=== PATIENT | female | born 1975 | race Two or more races ===

== ENCOUNTER 2020-10-25 13:39 | Emergency (ER) | payer SELFPAY ==
[2020-10-25] MEDS ORDERED: Sodium Chloride 0.9% 1,000 ML IV ONE (14:32)
[2020-10-25] MEDS ORDERED: Sodium Chloride 0.9% 10 ML Syringe FLUSH PRN (14:32)
--- NOTE | 2020-10-25 14:49 | EDM.PDOC ---
ED HPI GENERAL MEDICAL PROBLEM - General Chief Complaint: Syncope Stated Complaint: SYNCOPE Time Seen by Provider: 10/25/20 14:13 Source of Information: Reports: Patient History Limitations: Reports: No Limitations, Other (ED vital signs reveal a temp of 97.0, pulse of 81, respiratory rate of 12, blood pressure 137/78, pulse ox 100% on room air.) - History of Present Illness INITIAL COMMENTS - FREE TEXT/NARRATIVE: 45-year-old female presents the emergency department with complaints of a syncopal episode. The patient is not Upper Sorbian speaking so her is at the bedside translating. He states that this morning he was outside working when she came to find him and was very tremulous and weak with ambulation. She reported to him that she had a syncopal episode just prior to trying to find him. He is unaware how long she was out for. He states that she does have a history of significant alcohol consumption. She drinks at least 6 beers per day. He states she does not drink any hard alcohol. She has drank for as long as he can remember. She had 6 beers yesterday with her last drink being at about 11 PM last evening. He states that she complained of feeling shaky and not really well yesterday already. He states that they have not been out in the heat however their house is extremely hot over the course the last few days it has been 90+ degrees outside. He states they do have fans running however. He states that her appetite has been fair however she does not drink much water. She has no significant past medical history and does not take any prescription medications. She denies nausea, vomiting, diarrhea or abdominal pain. He asks her and she does admit that yesterday she developed burning and irritation with urination. He states that she did have a fever this morning of about 101 degrees. He also did check her blood sugar at home and it was around 104 g/dL. She also complains of feeling like her tongue is swelling up in the back of her throat. However he states she has not consumed any new foods or drinks. She drank a bottle of coconut water today and that is all she has had for intake. Denies any cough or shortness of breath. Denies any chest pain. She is not a smoker and does not consume any recreational drugs. - Related Data Allergies Allergy/AdvReac Type Severity Reaction Status Date / Time No Known Allergies Allergy Verified 01/28/20 08:19 Home Meds: Home Meds . [No Known Home Meds] 10/25/20 [History] Past Medical History - Infectious Disease History Infectious Disease History: Reports: Chicken Pox, Measles, Mumps - Past Surgical History HEENT Surgical History: Reports: Tonsillectomy Female Surgical History: Reports: Section Other Female Surgeries/Procedures: x 3 Social & Family History - Tobacco Use Tobacco Use Status *Q: Never Tobacco User - Caffeine Use Caffeine Use: Reports: Coffee, Soda - Recreational Drug Use Recreational Drug Use: No ED ROS GENERAL - Review of Systems Review Of Systems: Comprehensive ROS is negative, except as noted in HPI. - Physical Exam Exam: See Below Exam Limited By: Language Barrier General Appearance: Alert, WD/WN, No Apparent Distress Ears: Normal External Exam, Hearing Grossly Normal Nose: Normal Inspection Throat/Mouth: Normal Inspection, Normal Lips, Normal Voice, No Airway Compromise Head Exam: Atraumatic Neck: Normal Inspection, Supple Respiratory/Chest: No Respiratory Distress, Lungs Clear, Normal Breath Sounds, No Accessory Muscle Use, Chest Non-Tender Cardiovascular: Normal Peripheral Pulses, Regular Rate, Rhythm, No Edema, No Murmur GI/Abdominal: Normal Bowel Sounds, Soft, Non-Tender, No Distention (Female) Exam: Deferred Rectal (Female) Exam: Deferred Neuro Exam (Abbreviated): Alert, Oriented, Normal Cognition Back Exam: Normal Inspection Extremities: Normal Inspection, Normal Range of Motion, No Pedal Edema, Normal Capillary Refill Psychiatric: Normal Affect, Normal Mood Skin Exam: Warm, Dry, Intact, Normal Color, No Rash #1 Interpretation EKG Date: 10/25/20 Time: 14:00 Rhythm: NSR Rate (Beats/Min): 74 Waddy: Normal P-Wave: Present QRS: Normal ST-T: Normal QT: Normal Comparison: NA - No Prior EKG EKG Interpretation Comments: Per Dr. Muro interpretation: sinus rhythm @ 74/min; normal EKG Course - Vital Signs Text/Narrative:: Per my assessment, the patient is tremulous. She is unsteady on her feet as I did watch her ambulate to the bathroom to give us a urine sample. She does not have any abdominal tenderness with palpation. She does not have any suprapubic tenderness. She does not have any chest pain with palpation or deep breathing. Her lungs are clear. Mucous membranes are slightly dry. I have ordered labs to include a CBC, CMP, magnesium, C-reactive protein, troponin, TSH, urinalysis with micro and culture if warranted, portable view of the chest and an EKG. I have also ordered for the patient to receive a liter of normal saline as she is likely dehydrated from her excessive alcohol intake. Last Recorded V/S: Last Vital Signs Temp 97.0 F 10/25/20 13:59 Pulse 81 10/25/20 13:59 Resp 12 10/25/20 13:59 BP 137/78 10/25/20 13:59 Pulse Ox 100 10/25/20 13:59 - Orders/Labs/Meds Orders: Active Orders 24 hr Category Date Time Status EKG Documentation Completion [RC] ASDIRECTED Care 10/25/20 13:55 Active Holter Monitor 48 Hours [RC] .PRN Care 10/25/20 15:44 Active Sodium Chloride 0.9% [Saline Flush] Med 10/25/20 14:32 Active 10 ml FLUSH ASDIRECTED PRN Saline Lock Insert [OM.PC] Stat Oth 10/25/20 14:32 Ordered EKG 12 Lead [EK] Stat Ther 10/25/20 13:54 Ordered Medication Orders Sodium Chloride (Sodium Chloride 0.9% 10 Ml Syringe) 10 ml FLUSH ASDIRECTED PRN PRN Reason: Keep Vein Open Last Admin: 10/25/20 14:50 Dose: 10 ml Documented by: ALVARO Labs: Laboratory Tests 10/25/20 10/25/20 10/25/20 Range/Units 14:20 14:20 14:45 WBC 6.63 (3.98-10.04) K/mm3 RBC 4.15 (3.98-5.22) M/mm3 Hgb 11.4 (11.2-15.7) gm/dl Hct 35.5 (34.1-44.9) % MCV 85.5 (79.4-94.8) fl MCH 27.5 (25.6-32.2) pg MCHC 32.1 L (32.2-35.5) g/dl RDW Std Deviation 45.3 (36.4-46.3) fL Plt Count 338 (182-369) K/mm3 MPV 9.3 L (9.4-12.3) fl Neut % (Auto) 76.5 H (34.0-71.1) % Lymph % (Auto) 15.4 L (19.3-51.7) % [place] % (Auto) 7.5 (4.7-12.5) % Eos % (Auto) 0.3 L (0.7-5.8) Baso % (Auto) 0.3 (0.1-1.2) % Neut # (Auto) 5.07 (1.56-6.13) K/mm3 Lymph # (Auto) 1.02 L (1.18-3.74) K/mm3 [place] # (Auto) 0.50 H (0.24-0.36) K/mm3 Eos # (Auto) 0.02 L (0.04-0.36) K/mm3 Baso # (Auto) 0.02 (0.01-0.08) K/mm3 Sodium (136-145) mEq/L Potassium (3.5-5.1) mEq/L Chloride (98-107) mEq/L Carbon Dioxide (21-32) mEq/L Anion Gap (5-15) BUN (7-18) mg/dL Creatinine (0.55-1.02) mg/dL Est Cr Clr Drug Dosing mL/min Estimated GFR (MDRD) (>60) mL/min BUN/Creatinine Ratio (14-18) Glucose (70-99) mg/dL Calcium (8.5-10.1) mg/dL Magnesium (1.8-2.4) mg/dL Total Bilirubin (0.2-1.0) mg/dL AST (15-37) U/L ALT (14-59) U/L Alkaline Phosphatase (46-116) U/L Troponin I (0.00-0.056) ng/mL C-Reactive Protein (<1.0) mg/dL Total Protein (6.4-8.2) g/dl Albumin (3.4-5.0) g/dl Globulin gm/dL Albumin/Globulin Ratio (1-2) TSH 3rd Generation (0.358-3.74) uIU/mL Urine Color Light yellow (Yellow) Urine Appearance Clear (Clear) Urine pH 6.5 (5.0-8.0) Ur Specific [place] 1.010 (1.005-1.030) Urine Protein Negative (Negative) Urine Glucose (UA) Negative (Negative) Urine Ketones Negative (Negative) Urine Occult Blood Trace-lysed H (Negative) Urine Nitrite Negative (Negative) Urine Bilirubin Negative (Negative) Urine Urobilinogen 0.2 (0.2-1.0) Ur Leukocyte Esterase Negative (Negative) Urine RBC 0-5 (0-5) /hpf Urine WBC Not seen (0-5) /hpf Ur Epithelial Cells Not seen (0-5) /hpf Urine Bacteria Rare (FEW) /hpf Urine Mucus Not seen (FEW) /hpf Urine Opiates Screen Negative (QRTZCZ=887) Ur Buprenorphine Scrn Negative (CUTOFF=10) Ur Oxycodone Screen Negative (DNK8JV=810) Urine Methadone Screen Negative (WIZMVX=659) Ur Propoxyphene Screen Negative (ZMDINL=684) Ur Barbiturates Screen Negative (NGWWOU=771) Ur Tricyclics Screen Negative (IOHMDQ=327) Ur Phencyclidine Scrn Negative (CUTOFF=25) Ur Amphetamine Screen Negative (KFIRAE=589) U Methamphetamines Scrn Negative (RRXHOQ=502) U Benzodiazepines Scrn Negative (TKVLFU=561) U Cocaine Metab Screen Negative (TYLDHF=039) U Marijuana (THC) Screen Negative (CUTOFF=50) Ethyl Alcohol (0.00) gm% 10/25/20 Range/Units 14:45 WBC (3.98-10.04) K/mm3 RBC (3.98-5.22) M/mm3 Hgb (11.2-15.7) gm/dl Hct (34.1-44.9) % MCV (79.4-94.8) fl MCH (25.6-32.2) pg MCHC (32.2-35.5) g/dl RDW Std Deviation (36.4-46.3) fL Plt Count (182-369) K/mm3 MPV (9.4-12.3) fl Neut % (Auto) (34.0-71.1) % Lymph % (Auto) (19.3-51.7) % [place] % (Auto) (4.7-12.5) % Eos % (Auto) (0.7-5.8) Baso % (Auto) (0.1-1.2) % Neut # (Auto) (1.56-6.13) K/mm3 Lymph # (Auto) (1.18-3.74) K/mm3 [place] # (Auto) (0.24-0.36) K/mm3 Eos # (Auto) (0.04-0.36) K/mm3 Baso # (Auto) (0.01-0.08) K/mm3 Sodium 139 (136-145) mEq/L Potassium 3.7 (3.5-5.1) mEq/L Chloride 103 (98-107) mEq/L Carbon Dioxide 22 (21-32) mEq/L Anion Gap 17.7 H (5-15) BUN 6 L (7-18) mg/dL Creatinine 0.7 (0.55-1.02) mg/dL Est Cr Clr Drug Dosing 95.01 mL/min Estimated GFR (MDRD) > 60 (>60) mL/min BUN/Creatinine Ratio 8.6 L (14-18) Glucose 90 (70-99) mg/dL Calcium 8.6 (8.5-10.1) mg/dL Magnesium 1.8 (1.8-2.4) mg/dL Total Bilirubin 0.2 (0.2-1.0) mg/dL AST 29 (15-37) U/L ALT 30 (14-59) U/L Alkaline Phosphatase 95 (46-116) U/L Troponin I < 0.017 (0.00-0.056) ng/mL C-Reactive Protein <0.2 (<1.0) mg/dL Total Protein 8.1 (6.4-8.2) g/dl Albumin 3.9 (3.4-5.0) g/dl Globulin 4.2 gm/dL Albumin/Globulin Ratio 0.9 L (1-2) TSH 3rd Generation 1.247 (0.358-3.74) uIU/mL Urine Color (Yellow) Urine Appearance (Clear) Urine pH (5.0-8.0) Ur Specific [place] (1.005-1.030) Urine Protein (Negative) Urine Glucose (UA) (Negative) Urine Ketones (Negative) Urine Occult Blood (Negative) Urine Nitrite (Negative) Urine Bilirubin (Negative) Urine Urobilinogen (0.2-1.0) Ur Leukocyte Esterase (Negative) Urine RBC (0-5) /hpf Urine WBC (0-5) /hpf Ur Epithelial Cells (0-5) /hpf Urine Bacteria (FEW) /hpf Urine Mucus (FEW) /hpf Urine Opiates Screen (DQXYXI=475) Ur Buprenorphine Scrn (CUTOFF=10) Ur Oxycodone Screen (ZYW2VZ=338) Urine Methadone Screen (JDGBRX=570) Ur Propoxyphene Screen (AZGASC=869) Ur Barbiturates Screen (HKIKLE=811) Ur Tricyclics Screen (OBBRQP=632) Ur Phencyclidine Scrn (CUTOFF=25) Ur Amphetamine Screen (LHCZFI=631) U Methamphetamines Scrn (PMBBCH=509) U Benzodiazepines Scrn (QERJZX=991) U Cocaine Metab Screen (UXIMDR=041) U Marijuana (THC) Screen (CUTOFF=50) Ethyl Alcohol 0.00 (0.00) gm% Meds: Medications Generic Name Dose Route Start Last Admin Trade Name Freq PRN Reason Stop Dose Admin Sodium Chloride 10 ml 10/25/20 14:32 10/25/20 14:50 Sodium Chloride 0.9% 10 Ml Syringe FLUSH 10 ml ASDIRECTED PRN Administration Keep Vein Open Discontinued Medications Generic Name Dose Route Start Last Admin Trade Name Freq PRN Reason Stop Dose Admin Sodium Chloride 1,000 mls @ 999 mls/hr 10/25/20 14:32 10/25/20 14:50 Normal Saline IV 10/25/20 15:32 999 mls/hr ONETIME ONE Administration - Re-Assessments/Exams Free Text/Narrative Re-Assessment/Exam: 10/25/20 15:27 Radiologist impression portable view of the chest: 1. Nothing acute is seen on portable chest x-ray. 10/25/20 15:33 Hematology reveals a WBC of 6.63, hemoglobin 11.4, hematocrit 35.5, platelet count 338, chemistry reveals a sodium of 139, potassium 3.7, anion gap 17.7, BUN 6, creatinine 0.7, glucose 90, magnesium 1.8, AST 29, ALT 30, alk phos 95, troponin less than 0.017, C-reactive protein less than 0.2 urinalysis shows trace of lysed occult blood and is otherwise unremarkable Toxicology is negative, ethyl alcohol is 0.00 10/25/20 15:53 Went in to visit with the patient and her and discuss her lab results. She states she is still feeling shaky as she describes it. I highly suspect that this is contributed to her alcohol intake and not having any today. I am to have her receive the remainder of her liter of IV fluids and then she will be discharged home with a 48-hour Holter monitor. The patient does not have a regular provider so I will recommend that she follow-up with Willard Nuñez NP later this week on or monday for results of her holter monitor. 10/25/20 15:59 Pt is now complaining of discomfort to her right rib area. Her states that this has been going on for several weeks. No acute process was seen on chest xray. Will have her follow up with her primary provider regarding this. Departure - Departure Time of Disposition: 16:05 Disposition: Home, Self-Care 01 Condition: Good Clinical Impression: Syncope Qualifiers: Syncope type: unspecified Qualified Code(s): R55 - Syncope and collapse - Discharge Information Instructions: Syncope, [id number] Referrals: Ariel Nuñez NP [Primary Care Provider] - Forms: ED Department Discharge Additional Instructions: Marcia was seen in the emergency department today with an episode of fainting and feeling weak and tremulous. Labs were completed which were all essentially unremarkable. Urinalysis was essentially unremarkable and did not show any infection. Chest x-ray did not show any pneumonia or infection. EKG was normal. At this time the patient is tremors are likely contributed to chronic alcohol intake and not having any to drink today. Recommend that she stop drinking entirely. Also recommend that you increase your intake of water and el ectrolyte replacement such as Gatorade or Powerade as you have stated that your house is quite warm and she is likely dehydrated and this is what caused the fainting episode. She was sent home with a 48-hour Holter monitor. This gives us a recording of her heart rhythm over the next 48 hours. This reading will be sent to Willard Gottlieb NP. You will need to schedule an appointment with her in the clinic for October 29 or Friday, October 30, 2020 to get the results of this test. Would also recommend that she follow-up regarding the left rib discomfort. Should her condition worsen or change, do not hesitate returning to the emergency department. Sepsis Event Note (ED) - Evaluation Sepsis Screening Result: No Definite Risk - Focused Exam Vital Signs: Vital Signs Temp Pulse Resp BP Pulse Ox 10/25/20 13:59 97.0 F 81 12 137/78 100 - My Orders Last 24 Hours: My Active Orders 10/25/20 13:54 EKG 12 Lead [EK] Stat 10/25/20 13:55 EKG Documentation Completion [RC] ASDIRECTED 10/25/20 14:32 Sodium Chloride 0.9% [Saline Flush] 10 ml FLUSH ASDIRECTED PRN Saline Lock Insert [OM.PC] Stat 10/25/20 15:44 Holter Monitor 48 Hours [RC] .PRN - Assessment/Plan Last 24 Hours: My Active Orders 10/25/20 13:54 EKG 12 Lead [EK] Stat 10/25/20 13:55 EKG Documentation Completion [RC] ASDIRECTED 10/25/20 14:32 Sodium Chloride 0.9% [Saline Flush] 10 ml FLUSH ASDIRECTED PRN Saline Lock Insert [OM.PC] Stat 10/25/20 15:44 Holter Monitor 48 Hours [RC] .PRN
--- NOTE | 2020-10-25 15:24 | CR ---
Chest: Portable view of the chest was obtained. Comparison: No prior chest imaging is available. Heart size and mediastinum are normal. Lungs are clear with no acute parenchymal change. No acute osseous abnormality is appreciated. Impression: 1. Nothing acute is seen on portable chest x-ray. Diagnostic code #1
== END 2020-10-25 16:18 | disposition home or self-care (01) ==
LOC: JD.ED 13:39
DX: R55 Syncope and collapse (principal)
CPT/HCPCS: 36415; 71045; 80053; 80306; 80307; 81001; 83735; 84443; 84484; 85025; 86140; 93005; 93225; 93226; 99284; J7030; 93010; 99283

== ENCOUNTER 2021-12-21 23:04 | Emergency (ER) | payer SELFPAY ==
[2021-12-22] MEDS ORDERED: Cetirizine 10 MG Tab PO ONE (01:36)
== END 2021-12-22 01:58 | disposition home or self-care (01) ==
LOC: JD.ED 23:04
DX: T63.481A Toxic effect of venom of other arthropod, accidental (unintentional), initial encounter (principal)
CPT/HCPCS: 99282; A9270

== ENCOUNTER 2023-08-22 09:16 | Emergency (ER) | payer BC ==
[2023-08-22 09:53] LABS: BASOPHILS PERCENT AUTO 0.5 % (0.0-1.0); EOSINOPHILS ABSOLUTE AUTO 0.1 K/mm3 (0.0-0.4); HEMATOCRIT 31.3 % (37.0-47.0); HEMOGLOBIN 9.7 gm/dl (12.0-16.0); IMMATURE GRAN ABSOLUTE AUTO 0.05 K/mm3 (0.00-0.05); IMMATURE GRAN PERCENT AUTO 0.8 % (0.0-0.4); LYMPHOCYTES ABSOLUTE AUTO 2.2 K/mm3 (1.0-4.8); LYMPHOCYTES PERCENT AUTO 35.4 % (24.0-44.0); MEAN PLATELET VOLUME 9.4 fl (9.4-12.3); MONOCYTES ABSOLUTE AUTO 0.6 K/mm3 (0.0-0.8); MONOCYTES PERCENT AUTO 10.4 % (0.0-8.0); NEUTROPHILS ABSOLUTE AUTO 3.1 K/mm3 (1.8-7.7); NEUTROPHILS PERCENT AUTO 50.9 % (41.0-71.0); PLATELET COUNT,PLT 307 K/mm3 (150-400); RED BLOOD CELL COUNT 4.04 M/mm3 (4.10-5.30); WHITE BLOOD CELL COUNT,WBC 6.13 K/mm3 (3.9-11.3)
[2023-08-22 09:56] LABS: MEAN CORPUSCULAR VOLUME 77.5 fl (83.0-99.0)
[2023-08-22] MEDS: Ketorolac 30 MG/ML SDV IVPUSH ONE (10:05)
[2023-08-22] MEDS: LORazepam 2 MG/ML SDV IVPUSH ONE (10:05)
[2023-08-22] MEDS: Ondansetron 4 MG/2 ML SDV IVPUSH ONE (10:07)
[2023-08-22 10:17] LABS: A/G RATIO 0.8 (1-2); ALBUMIN 3.8 g/dl (3.4-5.0); ANION GAP 18.2 (5-15); BUN/CREATININE RATIO 15.7 (14-18); CALCIUM 8.6 mg/dL (8.5-10.1); CREATININE 0.7 mg/dL (0.55-1.02); EST CRCL DRUG DOSING (CG) 84.87 mL/min; POTASSIUM,K 3.2 mEq/L (3.5-5.1); PROTEIN TOTAL,TP 8.4 g/dl (6.4-8.2)
[2023-08-22 10:35] LABS: BILIRUBIN TOTAL 0.1 mg/dL (0.2-1.0)
[2023-08-22] MEDS: diphenhydrAMINE 50 MG/ML SDV IVPUSH ONE (11:19)
[2023-08-22] MEDS: Iopamidol 755 Mg/ML 100 ML Bottle IVPUSH ONE (11:21)
[2023-08-22] MEDS: Sodium Chloride 0.9% 100 ML IV SCH (11:21)
[2023-08-22] MEDS: Sodium Chloride 0.9% 10 ML Syringe FLUSH PRN (11:21)
[2023-08-22] MEDS: Sodium Chloride 0.9% 1,000 ML IV STA (11:21)
== END 2023-08-22 12:40 | disposition home or self-care (01) ==
LOC: JD.ED 09:16
DX: F41.9 Anxiety disorder, unspecified (principal); R07.89 Other chest pain; R79.1 Abnormal coagulation profile; Z88.8 Allergy status to other drugs, medicaments and biological substances; Z86.19 Personal history of other infectious and parasitic diseases; Z88.6 Allergy status to analgesic agent
CPT/HCPCS: 36415; 71046; 71046-26; 71275; 71275-26; 80053; 84484; 85025; 85379; 93005; 96361; 96374; 96375; 99285-25; J1200; J1885; J2060; J3490; J7030; Q9967

== ENCOUNTER 2024-07-21 09:32 | Emergency (ER) | payer BC | END 2024-07-21 11:57 | disposition home or self-care (01) | LOC: JD.ED 09:32 | DX: J06.9 Acute upper respiratory infection, unspecified (principal); B97.89 Other viral agents as the cause of diseases classified elsewhere; Z88.6 Allergy status to analgesic agent | CPT/HCPCS: 87428-QW; 99284 ==

== ENCOUNTER 2024-10-18 14:38 | Emergency (ER) | payer BC ==
[2024-10-18 16:37] LABS: BASOPHILS PERCENT AUTO 0.4 % (0.0-1.0); EOSINOPHILS ABSOLUTE AUTO 0.1 K/mm3 (0.0-0.4); EOSINOPHILS PERCENT AUTO 1.4 % (0.0-6.0); HEMATOCRIT 36.2 % (37.0-47.0); HEMOGLOBIN 11.5 gm/dl (12.0-16.0); IMMATURE GRAN ABSOLUTE AUTO 0.02 K/mm3 (0.00-0.05); IMMATURE GRAN PERCENT AUTO 0.4 % (0.0-0.4); LYMPHOCYTES PERCENT AUTO 16.9 % (24.0-44.0); MEAN CORPUSCULAR HEMOGLOBIN 26.4 pg (28.0-32.0); MEAN CORPUSCULAR HGB CONC 31.8 g/dl (32.0-36.0); MEAN CORPUSCULAR VOLUME 83.2 fl (83.0-99.0); MEAN PLATELET VOLUME 10.8 fl (9.4-12.3); MONOCYTES ABSOLUTE AUTO 0.5 K/mm3 (0.0-0.8); MONOCYTES PERCENT AUTO 9.3 % (0.0-8.0); NEUTROPHILS ABSOLUTE AUTO 4.1 K/mm3 (1.8-7.7); NEUTROPHILS PERCENT AUTO 71.6 % (41.0-71.0); PLATELET COUNT,PLT 250 K/mm3 (150-400); RED BLOOD CELL COUNT 4.35 M/mm3 (4.10-5.30); WHITE BLOOD CELL COUNT,WBC 5.69 K/mm3 (3.9-11.3)
[2024-10-18] MEDS ORDERED: Sodium Chloride 0.9% 1,000 ML IV STA (16:55)
[2024-10-18] MEDS ORDERED: Sodium Chloride 0.9% 100 ML IV SCH (17:00)
[2024-10-18 17:18] LABS: A/G RATIO 0.8 (1-2); ALANINE AMINOTRANSFERASE,ALT 28 U/L (14-59); ALBUMIN 3.4 g/dl (3.4-5.0); ALKALINE PHOSPHATASE 99 U/L (46-116); ANION GAP 13.4 (5-15); ASPARTATE AMNIOTRANSFERASE,AST 35 U/L (15-37); BILIRUBIN TOTAL 0.4 mg/dL (0.2-1.0); BLOOD UREA NITROGEN,BUN 8 mg/dL (7-18); BUN/CREATININE RATIO 11.4 (14-18); CALCIUM 9.2 mg/dL (8.5-10.1); CARBON DIOXIDE,CO2 25 mEq/L (21-32); CHLORIDE,CL 102 mEq/L (98-107); CREATININE 0.7 mg/dL (0.55-1.02); EST CRCL DRUG DOSING (CG) 98.07 mL/min; ESTIMATED GFR 106 mL/min (>60); GLUCOSE RANDOM 90 mg/dL (70-99); POTASSIUM,K 3.4 mEq/L (3.5-5.1); PROTEIN TOTAL,TP 7.9 g/dl (6.4-8.2); SODIUM,NA 137 mEq/L (136-145)
[2024-10-18] MEDS: Iopamidol 755 Mg/ML 100 ML Bottle IVPUSH ONE (17:19)
[2024-10-18 17:22] LABS: TROPONIN I HIGH SENSITIVITY < 4 pg/mL (<=51)
== END 2024-10-18 18:52 | disposition home or self-care (01) ==
LOC: JD.ED 14:38
DX: R07.89 Other chest pain (principal); F41.9 Anxiety disorder, unspecified; Z88.6 Allergy status to analgesic agent; Z88.8 Allergy status to other drugs, medicaments and biological substances; Z79.899 Other long term (current) drug therapy
CPT/HCPCS: 36415; 71046; 71275; 80053; 84484; 85025; 85379; 93005; 99285; Q9967